=== PATIENT | female | born 1975 | race Asian ===

== ENCOUNTER 2020-11-29 08:05 | Outpatient (CLI) | payer BC | END 2020-11-29 08:06 | disposition home or self-care (01) | LOC: BICULT 08:05 | PROVIDERS: ATTEND Internal Medicine Hematology & Oncology | DX: C50.911 Malignant neoplasm of unspecified site of right female breast (principal); N63.10 Unspecified lump in the right breast, unspecified quadrant ==

== ENCOUNTER 2021-03-05 12:08 | Outpatient (CLI) | payer BC | END 2021-03-05 12:09 | disposition home or self-care (01) | LOC: TBSIIMAG 12:08 | PROVIDERS: ATTEND Internal Medicine Hematology & Oncology | DX: C50.911 Malignant neoplasm of unspecified site of right female breast (principal); R51.9 Headache, unspecified; R42 Dizziness and giddiness; C79.31 Secondary malignant neoplasm of brain; R22.0 Localized swelling, mass and lump, head | CPT/HCPCS: 70553 ==

== ENCOUNTER → 2021-03-09 | Outpatient (CLI) | payer BC | LOC: PET 11:00 | PROVIDERS: ATTEND Internal Medicine Hematology & Oncology | DX: C50.911 Malignant neoplasm of unspecified site of right female breast (principal); C71.9 Malignant neoplasm of brain, unspecified | CPT/HCPCS: 78815; A9552 ==

== ENCOUNTER 2021-03-14 09:55 | Outpatient (CLI) | payer BC ==
[2021-03-14 19:13] LABS: SARS-CoV-2 PCR by NAA Not Detected (NotDetected)
== END 2021-03-14 09:56 | disposition home or self-care (01) ==
LOC: LABBT 09:55
PROVIDERS: ATTEND Internal Medicine Hematology & Oncology
DX: Z01.812 Encounter for preprocedural laboratory examination (principal); C50.911 Malignant neoplasm of unspecified site of right female breast; Z20.822 Contact with and (suspected) exposure to COVID-19
CPT/HCPCS: U0003; U0005

== ENCOUNTER 2021-03-19 08:23 | Day surgery (SDC) | payer BC ==
[2021-03-15 14:08] VITALS: BMI 23.5
[2021-03-19 08:43] LABS: INR-International Normal Ratio 0.9; Prothrombin Time 12.6 sec (12.0-14.7)
[2021-03-19 08:45] LABS: PTT 22.8 sec (22.9-36.1)
[2021-03-19] MEDS ORDERED: Midazolam HCl 2 mg/2 ml Vial ONE (11:03)
[2021-03-19] MEDS ORDERED: Sodium Bicarbonate 2.5 MEQ/5 ML VIAL ONE (11:03)
[2021-03-19] MEDS ORDERED: Fentanyl 100 MCG/2 ML VIAL ONE (11:03)
== END 2021-03-19 12:45 | disposition home or self-care (01) ==
LOC: CT 08:23
PROVIDERS: ATTEND Internal Medicine Hematology & Oncology
PROC: 0FB13ZX Excision of Right Lobe Liver, Percutaneous Approach, Diagnostic (ICD-10-PCS; principal; 2021-03-19)
DX: C78.7 Secondary malignant neoplasm of liver and intrahepatic bile duct (principal); C50.911 Malignant neoplasm of unspecified site of right female breast; C79.31 Secondary malignant neoplasm of brain
CPT/HCPCS: 36415; 47000; 77012; 85610; 85730; 88307; 88333; 88341; 88342; 90471; 90732; G0009; J2250; J3010